=== PATIENT | male | born 1955 | race Hispanic/Latino ===

== ENCOUNTER → 2018-03-25 | Outpatient (CLI) | payer OTHER ==
[~2018-03-25] MED LIST: GLIPIZIDE ER5 MG PO; METFORMIN HCL500 M1 PO
--- NOTE | 2018-03-26 15:32 | Diagnostic Imaging Report ---
EXAM: MRI of the abdomen without contrast with MRCP INDICATION: Obstructive jaundice. Weight loss. COMPARISON: None available. TECHNIQUE: Multiplanar, multisequence MRCP was performed, with sequences including coronal turbo spin-echo T1-weighted scans, [facility] MRCP scans, coronal spin, coronal MPR 2[facility], [facility] MRCP PERALTA. Discussion: Image degradation by breathing motion artifact. LOWER THORAX: Unremarkable. HEPATOBILIARY: No focal hepatic lesions. The common bile duct is diffusely dilated up to 1.4 cm in AP dimension on image 25 series 6, with abrupt cut off and low signal filling defect just proximal to the ampulla as seen on coronal image 19 series 8. Proximal mild diffuse central intrahepatic biliary dilatation. GALLBLADDER: No radio-opaque stones or sludge. No wall thickening. SPLEEN: No splenomegaly. PANCREAS: The main pancreatic duct is mildly prominent measuring 3 to 4 mm in diameter. ADRENALS: No adrenal nodules KIDNEYS/URETERS: Mild prominence of the right upper upper pole collecting system with a possible cyst small cyst in the lateral interpolar region of the right kidney on image 36 series 5. No stones. GI TRACT: No abnormal distention, wall thickening, or evidence of bowel obstruction. Appendix is normal. LYMPH NODES: No lymphadenopathy. VESSELS: Unremarkable. PERITONEUM / RETROPERITONEUM: No free air or fluid. BONES: No suspicious lesions. SOFT TISSUES: Unremarkable. IMPRESSION: Mild central intrahepatic biliary dilatation, and moderate diffuse dilatation of the common bile duct with abrupt cut off distally just proximal to the ampulla, with low-attenuation filling defect not well evaluated due to the lack of contrast. Given the lack of evidence of cholelithiasis on this exam, findings could be related to an ampullary lesion, distal CBD lesion, or less likely pancreatic head lesion given mild prominence of the main pancreatic duct. Recommend further evaluation with CT or MRI of abdomen without and with contrast pancreatic mass protocol. Otherwise, consider ERCP. Signed by: Dr. Chris Dockery M.D. on 03/26/2018 3:29 PM
== END ==
LOC: MRI 12:15
PROVIDERS: ATTEND Internal Medicine Gastroenterology
DX: K83.1 Obstruction of bile duct (principal)
CPT/HCPCS: 74181

== ENCOUNTER 2018-03-27 08:24 | Inpatient (IN) | payer OTHER ==
[2018-03-25 15:46] LABS: BASOPHILS % 0.3 % (0.0-1.0); EOSINOPHILS # (AUTO) 0.1 (0.0-0.4); HEMOGLOBIN 10.4 g/dL (14.0-18.0); LYMPHOCYTES # (AUTO) 1.3 (1.0-3.2); MEAN CORPUSCULAR HEMOGLOBIN 31.2 pg (28-32); MEAN CORPUSCULAR HGB CONC 32.5 g/dL (31-35); MEAN CORPUSCULAR VOLUME 96.1 fL (81-99); MONOCYTES # (AUTO) 0.8 (0.2-0.8); MONOCYTES % 6.9 % (4.4-11.3); NEUTROPHILS # (AUTO) 9.4 (2.1-6.9); NEUTROPHILS % 80.5 % (38.7-80.0); PLATELET COUNT 414 x10e3/uL (140-360); RED BLOOD COUNT 3.33 x10e6/uL (4.3-5.7)
[2018-03-25 16:00] LABS: INR 1.06; PROTHROMBIN TIME 14.8 seconds (11.9-14.5)
[2018-03-25 16:01] LABS: PARTIAL THROMBOPLASTIN TIME 37.6 seconds (23.8-35.5)
[2018-03-25 16:09] LABS: ALANINE AMINOTRANSFERASE 159 IU/L (0-55); ALBUMIN 2.1 g/dL (3.5-5.0); ALBUMIN/GLOBULIN RATIO 0.5 (0.8-2.0); ALKALINE PHOSPHATASE 1444 IU/L (40-150); ANION GAP 14.5 mmol/L (8-16); BLOOD UREA NITROGEN 10 mg/dL (7-26); BUN/CREATININE RATIO 15 (6-25); CALCIUM 9.2 mg/dL (8.4-10.2); CARBON DIOXIDE 21 mmol/L (22-29); CHLORIDE 102 mmol/L (98-107); CREATININE, SERUM 0.65 mg/dL (0.72-1.25); EST GLOMERULAR FILTRATION RATE > 60 ML/MIN (60-); GLUCOSE 60 mg/dL (74-118); POTASSIUM 3.5 mmol/L (3.5-5.1); SODIUM 134 mmol/L (136-145)
[~2018-03-27] VITALS: Ht 167.6 cm; Wt 72.2 kg
--- OUTSIDE RECORDS SUMMARY | 2018-03-27 08:26 | XMS REPORT ---
Author Author [facility] Address Unknown Phone Unavailable Care Team Providers Care Sheep Sticker Name Role Phone SEJAL JIM Unavailable Unavailable Problems This patient has no known problems. Allergies, Adverse Reactions, Alerts This patient has no known allergies or adverse reactions. Medications This patient has no known medications. Results Test Description Test Time Test Comments Text Results Atomic Results Result Comments MRI MRCP WO 2018-03-26 15:14:00 [place] [address] Patient Name: MICHAEL THOMPSON MR #: [id number] : 1955 Age/Sex: 63/M Req #: [id number] Adm Physician: Ordered by: SEJAL JIM MD Report #: [id number] Location: MRI Room/Bed: Procedure: [id number] MRI/MRI MRCP WO Exam Date: 03/25/18 Exam Time: 1603 REPORT STATUS: Signed EXAM: MRI of the abdomen without contrast with MRCP INDICATION: Obstructive jaundice. Weight loss. COMPARISON: None available. TECHNIQUE: Multiplanar, multisequence MRCP was performed, with sequences including coronal turbo spin-echo T1-weighted scans, [facility] MRCP scans, coronal spin, coronal MPR 2, [facility] 3D HR, [facility] MRCP PERALTA. Discussion: Image degradation by breathing motion artifact. LOWER THORAX: Unremarkable. HEPATOBILIARY: No focal hepatic lesions. The common bile duct is diffusely dilated up to 1.4 cm in AP dimension on image 25 series 6, with abrupt cut off and low signal filling defect just proximal to the ampulla as seen on coronal image 19 series 8. Proximal mild diffuse central intrahepatic biliary dilatation. GALLBLADDER: No radio-opaque stones or sludge. No wall thickening. SPLEEN: No splenomegaly. PANCREAS: The main pancreatic duct is mildly prominent measuring 3 to 4 mm in diameter. ADRENALS: No adrenal nodules KIDNEYS/URETERS: Mild prominence of the right upper upper pole collecting system with a possible cyst small cyst in the lateral interpolar region of the right kidney on image 36 series 5. No stones. GI TRACT: No abnormal distention, wall thickening, or evidence of bowel obstruction. Appendix is normal. LYMPH NODES: No lymphadenopathy. VESSELS: Unremarkable. PERITONEUM / RETROPERITONEUM: No free air or fluid. BONES: No suspicious lesions. SOFT TISSUES: Unremarkable. IMPRESSION: Mild central intrahepatic biliary dilatation, and moderate diffuse dilatation of the common bile duct with abrupt cut off distally just proximal to the ampulla, with low-attenuation filling defect not well evaluated due to the lack of contrast. Given the lack of evidence of cholelithiasis on this exam, findings could be related to an ampullary lesion, distal CBD lesion, or less likely pancreatic head lesion given mild prominence of the main pancreatic duct. Recommend further evaluation with CT or MRI of abdomen without and with contrast pancreatic mass protocol. Otherwise, consider ERCP. Signed by: Dr. Chris Johnson M.D. on 03/26/2018 3:29 PM Dictated By: RADHA JOHNSON MD, MD [id number] Transcribed By: CASIMIRO on 03/26/18 1529 COPY TO: SEJAL JIM MD
[2018-03-27] MEDS ORDERED: DEXTROSE 5% 250ML 250 ML IV ONE (09:00)
[2018-03-27] MEDS ORDERED: DEXTROSE 50% SYRINGE 50 ML IV ONE (11:57)
[2018-03-27] MEDS ORDERED: IOPAMIDOL 610MG/1ML 300 MG/ML VIAL IV ONE (12:39)
[2018-03-27] MEDS ORDERED: INDOMETHACIN 50 MG SUPP.RECT RC ONE (12:40)
--- NOTE | 2018-03-27 14:26 | NUR ---
RCD PT FROM PACU BY STRETCHER PT IS ALERT AND ORIENTED VITALS CHECKED PT RESTING ON BED NO SIGNS OF ANY DISTRESS NOTED ADMISSION ASSESSMENT AND HISTORY DONE FAMILY AT BED SIDE INSTRUCTED PT AND FAMILY REGARDING HOSPITAL POLICY AND ROUTINE BED LOW AND LOCKED CALL LIGHT IN REACH
[2018-03-27] MEDS ORDERED: MIDAZOLAM HCL 2 MG/2 ML VIAL ONE (15:18)
[2018-03-27] MEDS ORDERED: FENTANYL CITRATE/PF 100MCG/2 ML INJ ONE (15:18)
[2018-03-27 15:33] LABS: INR 1.1; PROTHROMBIN TIME 15.2 seconds (11.9-14.5)
[2018-03-27 15:34] LABS: PARTIAL THROMBOPLASTIN TIME 36.3 seconds (23.8-35.5)
--- NOTE | 2018-03-27 15:46 | Operative Report ---
DATE OF PROCEDURE: March 27, 2018 REFERRING PHYSICIAN: Dr. Gurdeep Serrano. PROCEDURES PERFORMED 1. Endoscopic retrograde cholangiopancreatography. 2. Esophagogastroduodenoscopy with biopsies. MEDICATION: Patient was done under general endotracheal anesthesia. Please see anesthesiologist's note. PROCEDURE: After induction of adequate general endotracheal anesthesia with the patient in the prone position, the flexible fiberoptic side-viewing Olympus scope was introduced into the esophagus and advanced all the way to the second portion of the duodenum. A large tumor was noted in the periampullary area, and the scope could not be advanced beyond that area. No discernible ampullary orifice was noted to attempt to cannulate. The scope was then withdrawn, and an EGD scope was inserted and multiple biopsies were obtained and sent for frozen section. There was one single area that was thought potentially represented the ampullary orifice, and attempt to cannulate it with a forward-viewing scope was unsuccessful. The scope was subsequently withdrawn. Patient tolerated the procedure well. IMPRESSION 1. Large periampullary mass. Frozen section positive for adenocarcinoma. 2. No ampullary orifice could be delineated for cannulation. INCOMPLETE REPORT - CANCELLED Job#: [id number] EV
--- NOTE | 2018-03-27 15:47 | Operative Report ---
DATE OF PROCEDURE: March 27, 2018 REFERRING PHYSICIAN: Gurdeep Fajardo MD PROCEDURES PERFORMED 1. Endoscopic retrograde cholangiopancreatography. 2. Esophagogastroduodenoscopy with biopsies. INDICATIONS FOR PROCEDURE: Obstructive jaundice, abnormal MRCP. MEDICATION: Patient was done under general endotracheal anesthesia. Please see anesthesiologist's note. DESCRIPTION OF PROCEDURE: After adequate induction of general endotracheal anesthesia with the patient in a prone position, the flexible fiberoptic Olympus side-viewing scope was introduced into the esophagus and advanced all the way to the 2nd portion of the duodenum. There was a large periampullary tumor noted and no ampullary orifice was delineated to attempt to cannulate. The scope could not be advanced beyond the tumor. The scope was subsequently withdrawn, and an EGD scope was introduced into the esophagus and advanced all the way to the 2nd portion of the duodenum. Biopsies were obtained from the mass, and those were positive for adenocarcinoma. An attempt then was made to cannulate a spot which appeared to be possibly the ampullary orifice, but the cannulation was unsuccessful. The scope was subsequently withdrawn. Patient tolerated the procedure well. IMPRESSION 1. Large periampullary tumor. Biopsies were positive for adenocarcinoma. 2. No definite ampullary orifice was delineated to cannulate. 3. An attempt to cannulate with the forward-viewing scope what appeared to be possibly the ampullary orifice was unsuccessful. PLAN: Will refer to interventional radiology for external drainage. Job#: [id number] MH cc:GURDEEP FAJARDO MD
[2018-03-27] MEDS ORDERED: PROPOFOL IV EMULSION 10 MG/ML 20 ML VIAL ONE (16:05)
[2018-03-27] MEDS ORDERED: ONDANSETRON HCL INJ 2MG/ML 2ML 2 MG/ML VIAL ONE (16:05)
[2018-03-27] MEDS ORDERED: DEXAMETHASONE SOD PHOS INJ 4 MG/ML VIAL ONE (16:05)
[2018-03-27] MEDS ORDERED: LIDOCAINE HCL 2% LOCAL INJ 5 ML SDV VIAL INJ ONE (16:05)
[2018-03-27] MEDS ORDERED: SEVOFLURANE INHAL SOLN 250 ML PEN BTL ONE (16:05)
--- NOTE | 2018-03-27 17:00 | NUR ---
PT GOING FOR PROCEDURE ON TOMORROW CONSENT SIGNED NPO AFTER MIDNIGHT
[2018-03-27 17:36] VITALS: BP 113/76
[2018-03-27 17:45] VITALS: BP 99/58
--- NOTE | 2018-03-27 19:13 | NUR ---
REPORT GIVEN TO ONCOMING NURSE,WALKING ROUNDS MADE.PT RESTING IN BED WITH NO S/S OF DISTRESS.
[2018-03-27 20:00] VITALS: BP 119/70
[2018-03-27 22:00] VITALS: BP 119/70
[2018-03-28] VITALS (7 sets, daily range): BP systolic 107–118; BP diastolic 65–71
--- NOTE | 2018-03-28 07:20 | NUR ---
REPORT GIVEN TO ONCOMING NURSE,WALKING ROUNDS MADE.PT RESTING IN BED WITH NO S/S OF DISTRESS.
--- NOTE | 2018-03-28 07:45 | NUR ---
Dr. Huffman visited and spoke with the pt. and his son concerning his recent diagnosis and treatment plan. The pt is N P O for ct scan and IR procedure.
--- NOTE | 2018-03-28 08:58 | NUR ---
The pt was escorted to CT via w/c in stable condition for the Ct scan.
--- NOTE | 2018-03-28 09:23 | NUR ---
920am called to CT scan room. Rt Ac IV #20 placed for procedure w/o incident ,flushed with ns with adequate blood return, no swelling or infiltration.Site secured and dressed. Handoff to CT staff Ratna freight air brake fitter, isaac to proceed with line for CT testing. Nacny ARANA (radiology nurse)
--- NOTE | 2018-03-28 09:30 | NUR ---
The pt. was returned to the room from the scan and maintained N P O for IR.
--- NOTE | 2018-03-28 10:31 | Diagnostic Imaging Report ---
EXAMINATION: CT of the abdomen and pelvis with contrast. TECHNIQUE: Helical CT images of the abdomen and pelvis were performed from the lung bases to the lesser trochanters after the intravenous administration of 150 cc of Isovue 300 and the oral administration of none. Coronal and sagittal reformatted images were obtained.Dose modulation, iterative reconstruction, and/or weight based adjustment of the mA/kV was utilized to reduce the radiation dose to as low as reasonably achievable. COMPARISON: MRCP March 25, 2017 CLINICAL HISTORY:Jaundice, cancer DISCUSSION: ABDOMEN/PELVIS: LOWER THORAX:Unremarkable. HEPATOBILIARY: No focal hepatic lesions. Intrahepatic biliary dilatation. The common bile duct is dilated measuring up to 1.3 cm with abrupt narrowing at the ampulla of vater. Soft tissue density in this region. Mild gallbladder wall thickening. No calculi. SPLEEN: No splenomegaly. PANCREAS: Pancreatic duct is prominent measuring 4 mm proximally. No visualized pancreatic head mass. ADRENALS: No adrenal nodules. KIDNEYS/URETERS: 1.3 cm simple cyst in the right kidney. No enhancing lesions. No calculi. No obstruction. PELVIC ORGANS/BLADDER: The bladder is normal. PERITONEUM/RETROPERITONEUM: No free air or fluid. LYMPH NODES: No intra-abdominal, retroperitoneal, pelvic or inguinal lymphadenopathy. VESSELS: Unremarkable. GI TRACT: No distention or wall thickening. BONES AND SOFT TISSUE: No bony destructive lesions. No soft tissue abnormalities. IMPRESSION: Ampullary carcinoma with biliary dilatation. No significant pancreatic invasion, adenopathy, or metastasis. Signed by: Dr. Abdirashid Spence M.D. on 03/28/2018 10:28 AM
[2018-03-28] MEDS ORDERED: IOPAMIDOL 370 MG/ML 200 ML INFUS..BTL INJ ONE (14:36)
[2018-03-28] MEDS ORDERED: SODIUM CHLORIDE 0.9% 50ML 50 ML ONE (14:36)
[2018-03-28] MEDS: DEXTROSE 5%/0.45% SOD CHL 1,000 ML IV SCH (14:45)
--- NOTE | 2018-03-28 14:45 | NUR ---
I spoke with Dr. Moreno about med rec and he does not want med restarted at this time. Iv fluids ordered and is hanging.
--- NOTE | 2018-03-28 15:49 | NUR ---
Doppler pulses positive bilaterally in feet. The pt. will be allowed head elevation as there is no edema or bleeding noted.
--- NOTE | 2018-03-28 16:42 | NUR ---
Nutrition Intervention Note RD Recommendation(s) for Physician: -Rec GI soft diet as medically feasible -Consider Glucerna BID to promote protein-calorie intake when PO is feasible The patient meets criteria for MODERATE protein-calorie malnutrition. Plan of Care: RD following, monitoring for tolerance and adequacy, ONS rec Nutrition reason for involvement: Nutrition Risk Trigger MST RD Assessment 03/28- Chart reviewed. 63yo M, who is admitted for ampullary cancer/ obstruction and jaundice. S/p ERCP and EGD with biopsy on 03/27. Visited pt in the room. Pt only speaks Portuguese; daughter presented on bedside to translate. Pt reported constant nausea after eating and 20lbs weight loss since he started on 2 new medications in December 2017. Reported UBW ~190lbs. During my interview, pt reported having appetite and eager to eat; NPO at this time. No nausea, vomiting or abdominal pain at this time. 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 Will continue to monitor and follow. Principal Problems/Diagnoses: ampullary cancer, jaundice PMH: DM GI: LBM prior to surgery Skin: intact Labs: reviewed Meds: dextrose Ht: 66in Wt: 170.38lb BMI: 27.5kg/m2 IBW: 142 Malnutrition Evaluation (03/28/2018) The patient meets criteria for MODERATE protein-calorie malnutrition. Energy intake: <75% of estimated energy requirements for >3 months Weight loss: >7.5% in 3 months (Acute) Fat loss: None Muscle loss: None Supporting Evidence: Fluid accumulation: N/A Functional Status: no changes Nutrition Prescription (Diet Order): NPO Estimated Nutritional Needs: Calories: 1925 2310kcal(25-30kcal/kg/d) Weight used: current BW Protein: 100 154g (1.3-2g/kg/d) Weight used: current BW Diet Adequacy: Not meeting calorie needs, Not meeting protein needs Diet Education Needs Assessment: Diet education not indicated Nutrition Care Level: mod Nutrition Diagnosis: Unintended weight loss related to acute illness as evidenced by poor PO intake and 20lbs weight loss in 3 months. Goal: Patient will meet 75-100% of estimated needs by follow up Progress: N/A Interventions: Texture-modified diet, Commercial beverage Monitoring/Evaluation: Total energy intake, Total protein intake, Modified diet, Liquid supplement, Weight change Signed: Georgia Head, , RD, LD
--- NOTE | 2018-03-28 19:19 | NUR ---
Report to the oncoming nurse
--- NOTE | 2018-03-28 21:29 | NUR ---
blood sugar rechecked and improving 76 mg/dl. Patient is alert and asymptomatic.
--- NOTE | 2018-03-28 23:40 | NUR ---
Seen by Dr. Abilio Melton, made aware of Blood sugar. New orders received. Patient ate some pudding and applesauce with orange juice.
[2018-03-29] VITALS (8 sets, daily range): BP systolic 114–129; BP diastolic 65–74
[2018-03-29] MEDS: DEXTROSE 5%/0.45% SOD CHL 1,000 ML IV SCH (03:15)
[2018-03-29 05:33] LABS: ALANINE AMINOTRANSFERASE 148 IU/L (0-55); ALBUMIN 1.8 g/dL (3.5-5.0); ALBUMIN/GLOBULIN RATIO 0.4 (0.8-2.0); ALKALINE PHOSPHATASE 1461 IU/L (40-150); ANION GAP 13.7 mmol/L (8-16); BLOOD UREA NITROGEN 14 mg/dL (7-26); BUN/CREATININE RATIO 22 (6-25); CALCIUM 8.8 mg/dL (8.4-10.2); CARBON DIOXIDE 23 mmol/L (22-29); CHLORIDE 99 mmol/L (98-107); CREATININE, SERUM 0.64 mg/dL (0.72-1.25); EST GLOMERULAR FILTRATION RATE > 60 ML/MIN (60-); GLUCOSE 103 mg/dL (74-118); POTASSIUM 3.7 mmol/L (3.5-5.1); SODIUM 132 mmol/L (136-145)
[2018-03-29 06:07] LABS: FERRITIN 821.99 ng/mL (21.81-274.66)
--- NOTE | 2018-03-29 06:13 | NUR ---
Dr Kaufman notified of this consult.
[2018-03-29 06:29] LABS: FOLATE 14.3 ng/mL (7.0-15.4)
--- NOTE | 2018-03-29 07:00 | NUR ---
The pt. was received from the off-gong nurse post rounding. The side rails are up and bed alarms functional.
--- NOTE | 2018-03-29 11:16 | NUR ---
The pt's blood glucose is elevated to 425 up from 132 this morning. No insulin coverage ordered and home meds were addressed with the on 03/28 and he does not want pt. on med pass at that time. A stat lab draw was ordered and a call to the for orders. Dr. Madison returned call and orders received and carried out.
[2018-03-29] MEDS ORDERED: DEXTROSE 50% SYRINGE 50 ML IV PRN ×4 (11:45→17:30)
[2018-03-29] MEDS ORDERED: PHYTONADIONE 10 MG/ML AMP IM ONE (13:30)
--- NOTE | 2018-03-29 13:58 | Consultation ---
DATE OF CONSULTATION: March 29, 2018 REASON FOR CONSULTATION: Ampullary cancer. HISTORY OF PRESENT ILLNESS: The patient is a 63-year-old male who has been complaining of painless jaundice associated with a 30-pound weight loss for 2 months. This has been associated with decreased appetite. No fever. No chills. The patient had a workup with CT scan, MRCP, and ERCP revealing an ampullary carcinoma. During the ERCP, the ampulla could not be cannulated, but biopsy was taken and the pathology report according to the ERCP report shows adenocarcinoma. The remaining workup does not show any evidence of metastatic disease. The patient's liver chemistries are grossly abnormal with a bilirubin of 12.7, alkaline phosphatase is 1461, AST 175, ALT 148. Protein is 5.9 with an albumin of 1.8. Admission electrolytes were normal. Blood sugar is 284. Admission CBC reveals a WBC of 11.65 with normal platelet count, hematocrit of 32. The admission PT is 15.5, INR of 1.1, and PTT of 36. Chest x-ray, there is no report on the chart if one has been done. PAST MEDICAL HISTORY: Significant for diabetes, hypertension, high cholesterol. PAST SURGICAL HISTORY: No previous major medical surgeries. SOCIAL HISTORY: He used to smoke. He does not drink. FAMILY HISTORY: Noncontributory. ALLERGIES: THE PATIENT HAS NO KNOWN ALLERGIES. CURRENT MEDICATIONS: Glipizide, metformin, lisinopril, pravastatin, Invokana, and Kombiglyze. REVIEW OF SYSTEMS: Significant for what has been stated. PHYSICAL EXAMINATION GENERAL: Reveals a 63-year-old male in no acute distress. He is clinically jaundiced. HEAD, EYES, EARS, NOSE AND THROAT: Examination reveals no acute process. LUNGS: Clear. HEART: Regular sinus rhythm. ABDOMEN: Soft and nontender. There are no palpable masses. EXTREMITIES: Reveal no clubbing, cyanosis, or edema. NEUROLOGIC: Examination is nonfocal. ASSESSMENT 1. 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 2. At this point, there is no evidence of metastatic disease. 3. Diabetes. 4. Hypertension. PLAN: At this point, it appears that the patient might be a surgical candidate for a Whipple procedure since there is no obvious metastatic disease. Of concern is the fact that he has significant weight loss and is grossly clinically jaundiced even though there is no evidence of adenopathy or hepatic metastasis, this is always a concern. We will discuss further management with the other consultants. Thank you very much for the courtesy of this consultation. Job#: [id number] LILI
--- NOTE | 2018-03-29 14:37 | Diagnostic Imaging Report ---
EXAMINATION: CHEST 2 VIEWS INDICATION: Jaundice, hematuria ^no recent exam COMPARISON: CT abdomen/pelvis 03/28/2018 FINDINGS: PA and lateral views TUBES and LINES: None. LUNGS: Lungs are well inflated. There is no evidence of pneumonia or pulmonary edema. PLEURA: No pleural effusion or pneumothorax. HEART AND MEDIASTINUM: The cardiomediastinal silhouette is unremarkable.. BONES AND SOFT TISSUES: Endplate degenerative changes of the spine. No focal osseous lesions. Soft tissues are unremarkable. UPPER ABDOMEN: No free air under the diaphragm. IMPRESSION: No acute thoracic abnormality. Signed by: Dr. Lisa Bueno MD on 03/29/2018 2:34 PM
[2018-03-29] MEDS: METFORMIN HCL 500 MG TAB CR PO SCH (18:10)
--- NOTE | 2018-03-29 19:08 | NUR ---
Report to oncoming nurse.
[2018-03-29] MEDS: INSULIN LISPRO 100 UNIT/1 ML 3ML VIAL SQ SCH (20:52)
[2018-03-29] MEDS ORDERED: INSULIN LISPRO 100 UNIT/1 ML 3ML VIAL SQ SCH (21:00)
[2018-03-29] MEDS ORDERED: INSULIN REGULAR, HUMAN 100 UNIT/1 ML 3ML VIAL SQ SCH (21:00)
[2018-03-30] VITALS (8 sets, daily range): BP systolic 108–126; BP diastolic 64–74
[2018-03-30 04:54] LABS: BASOPHILS % 0.3 % (0.0-1.0); EOSINOPHILS # (AUTO) 0.2 (0.0-0.4); EOSINOPHILS % 1.7 % (0.0-6.0); HEMATOCRIT 29.5 % (38.2-49.6); HEMOGLOBIN 10.3 g/dL (14.0-18.0); LYMPHOCYTES # (AUTO) 1.3 (1.0-3.2); LYMPHOCYTES % 12.4 % (18.0-39.1); MEAN CORPUSCULAR HEMOGLOBIN 32.6 pg (28-32); MEAN CORPUSCULAR HGB CONC 34.9 g/dL (31-35); MEAN CORPUSCULAR VOLUME 93.4 fL (81-99); MONOCYTES # (AUTO) 0.8 (0.2-0.8); MONOCYTES % 7.8 % (4.4-11.3); NEUTROPHILS # (AUTO) 8.2 (2.1-6.9); NEUTROPHILS % 77.4 % (38.7-80.0); PLATELET COUNT 369 x10e3/uL (140-360); RED BLOOD COUNT 3.16 x10e6/uL (4.3-5.7); RED CELL DISTRIBUTION WIDTH 13.7 % (11.7-14.4)
[2018-03-30 05:13] LABS: ALANINE AMINOTRANSFERASE 138 IU/L (0-55); ALBUMIN 1.8 g/dL (3.5-5.0); ALBUMIN/GLOBULIN RATIO 0.4 (0.8-2.0); ALKALINE PHOSPHATASE 1440 IU/L (40-150); ANION GAP 15.9 mmol/L (8-16); BLOOD UREA NITROGEN 12 mg/dL (7-26); BUN/CREATININE RATIO 18 (6-25); CALCIUM 8.8 mg/dL (8.4-10.2); CARBON DIOXIDE 23 mmol/L (22-29); CHLORIDE 99 mmol/L (98-107); CREATININE, SERUM 0.68 mg/dL (0.72-1.25); EST GLOMERULAR FILTRATION RATE > 60 ML/MIN (60-); GLUCOSE 212 mg/dL (74-118); POTASSIUM 3.9 mmol/L (3.5-5.1); SODIUM 134 mmol/L (136-145)
--- NOTE | 2018-03-30 07:00 | NUR ---
RCD PT AT BED PT IS ALERT AND ORIENTED ASSESSMENT DONE PT RESTING ON BED NO SIGNS OF ANY DISTRESS NOTED IV PATENT BED LOW AND LOCKED CALL LIGHT IN REACH
[2018-03-30] MEDS: INSULIN LISPRO 100 UNIT/1 ML 3ML VIAL SQ SCH ×4 (07:30→20:47)
[2018-03-30] MEDS: METFORMIN HCL 500 MG TAB CR PO SCH ×2 (08:00→16:23)
[2018-03-30] MEDS: IRON SUCROSE 100 MG in SODIUM CHLORIDE 0.9% 100 ML 100 ML IV SCH (09:00)
[2018-03-30] MEDS: GLIPIZIDE 5 MG TAB ER PO SCH (09:00)
[2018-03-30] MEDS ORDERED: PHYTONADIONE 10 MG/ML AMP IM ONE ×2 (09:00→10:00)
--- NOTE | 2018-03-30 15:25 | NUR ---
Visit made by the Spiritual Care Department Pastoral Visitor, Sandra Gutierrez. PV provided pastoral presence, hospitality, communion, and supportive listening. Pastoral Visitor informed pt/family of the scope of [employer] and availability. RICHY ZAPIEN Dispatcher Tow Truck Spiritual Care Department O: [phone] Pager: [phone] ([phone] number calling from)
--- NOTE | 2018-03-30 18:39 | NUR ---
PT RESTING ON BED BED SIDE REPORT GIVEN TO ONCOMING NURSE
[2018-03-31] VITALS (9 sets, daily range): BP systolic 113–130; BP diastolic 65–73
[2018-03-31 04:43] LABS: BASOPHILS # (AUTO) 0.1 (0.0-0.1); BASOPHILS % 0.5 % (0.0-1.0); EOSINOPHILS # (AUTO) 0.2 (0.0-0.4); HEMATOCRIT 30.2 % (38.2-49.6); HEMOGLOBIN 9.9 g/dL (14.0-18.0); LYMPHOCYTES # (AUTO) 1.5 (1.0-3.2); LYMPHOCYTES % 14.2 % (18.0-39.1); MEAN CORPUSCULAR HEMOGLOBIN 31.3 pg (28-32); MEAN CORPUSCULAR HGB CONC 32.8 g/dL (31-35); MEAN CORPUSCULAR VOLUME 95.6 fL (81-99); MONOCYTES # (AUTO) 0.9 (0.2-0.8); MONOCYTES % 8.3 % (4.4-11.3); NEUTROPHILS % 74.6 % (38.7-80.0); PLATELET COUNT 415 x10e3/uL (140-360); RED BLOOD COUNT 3.16 x10e6/uL (4.3-5.7); RED CELL DISTRIBUTION WIDTH 13.7 % (11.7-14.4)
[2018-03-31 05:09] LABS: ALANINE AMINOTRANSFERASE 133 IU/L (0-55); ALBUMIN 1.7 g/dL (3.5-5.0); ALBUMIN/GLOBULIN RATIO 0.4 (0.8-2.0); ALKALINE PHOSPHATASE 1460 IU/L (40-150); ANION GAP 13.7 mmol/L (8-16); BLOOD UREA NITROGEN 13 mg/dL (7-26); BUN/CREATININE RATIO 19 (6-25); CALCIUM 8.7 mg/dL (8.4-10.2); CARBON DIOXIDE 23 mmol/L (22-29); CHLORIDE 99 mmol/L (98-107); CREATININE, SERUM 0.68 mg/dL (0.72-1.25); EST GLOMERULAR FILTRATION RATE > 60 ML/MIN (60-); GLUCOSE 221 mg/dL (74-118); POTASSIUM 3.7 mmol/L (3.5-5.1); SODIUM 132 mmol/L (136-145)
[2018-03-31] MEDS: INSULIN LISPRO 100 UNIT/1 ML 3ML VIAL SQ SCH ×4 (07:30→20:30)
[2018-03-31] MEDS: METFORMIN HCL 500 MG TAB CR PO SCH ×2 (08:00→16:52)
[2018-03-31] MEDS: IRON SUCROSE 100 MG in SODIUM CHLORIDE 0.9% 100 ML 100 ML IV SCH (09:00)
[2018-03-31] MEDS: GLIPIZIDE 5 MG TAB ER PO SCH (09:00)
--- NOTE | 2018-03-31 14:53 | NUR ---
Spoke with Dr. Alina Kaufman. He [facility] He has spoke to Dr. Raphael Figueroa who will accept pt. Spoke to pt at bedside and he is agreeable to transferring. Choice letter signed and placed in chart. Copy to pt. CM called and spoke to Milana at the transfer center to initiate transfer. Faxed facesheet and H&P to transfer center. [facility] [address] [place] [id number] P [phone] F [phone] MOT initiated and placed in nurse's station. Per Dr. Maren Kaufman, pt needs to transfer with CT Scan, endoscopy imaging, and Dr. Ashley Melton's op report.
--- NOTE | 2018-03-31 15:58 | NUR ---
PUJA RN CALL FROM [facility] TO GET THE REPORT
--- NOTE | 2018-03-31 16:52 | NUR ---
Received call from Milana at the Transfer Center. She stated they currently do not have a bed. CM will follow up tomorrow morning.
--- NOTE | 2018-03-31 18:44 | NUR ---
PT RESTING ON BED BED SIDE REPORT GIVEN TO ONCOMING NURSE
--- NOTE | 2018-03-31 23:31 | NUR ---
PAGEDriss AND SPOKE TO DR Jazlyn JIM,NEW ORDER RECEIVED TO DISCHARGE PT.
--- NOTE | 2018-03-31 23:33 | NUR ---
SPOKE TO DR Ashley JIM,DR Ashley JIM UPDATED REGARDING PT TRANSFER TO [facility].
--- NOTE | 2018-03-31 23:45 | NUR ---
CALLED REPORT TO SOLITARIO ARANA FOR PT TRANSFERRING TO ROOM 1543 AT [facility].
[2018-04-01] VITALS: BP 120/71
--- NOTE | 2018-04-01 00:30 | NUR ---
PT TRANSFERRED TO [facility] VIA STRETCHER ACCOMPANIED BY 2 EMT IN STABLE CONDITION.PT'S SON PRESENT AT THE TIME OF TRANSFER.
== END 2018-04-01 00:30 | disposition short-term general hospital (02) | DRG 435 ==
LOC: ENDO 08:24 → PACU V 14:22 → MED/SURG2 15:05
PROC: BF101ZZ Fluoroscopy of Bile Ducts using Low Osmolar Contrast (ICD-10-PCS; 2018-03-27)
PROC: 0DB98ZX Excision of Duodenum, Via Natural or Artificial Opening Endoscopic, Diagnostic (ICD-10-PCS; 2018-03-27)
PROC: 0FBC8ZX Excision of Ampulla of Vater, Via Natural or Artificial Opening Endoscopic, Diagnostic (ICD-10-PCS; 2018-03-27)
PROC: 0FJB8ZZ Inspection of Hepatobiliary Duct, Via Natural or Artificial Opening Endoscopic (ICD-10-PCS; principal; 2018-03-27 12:55)
DX: C24.1 Malignant neoplasm of ampulla of Vater (principal); K83.1 Obstruction of bile duct; E11.9 Type 2 diabetes mellitus without complications; I10 Essential (primary) hypertension; Z79.4 Long term (current) use of insulin; D64.9 Anemia, unspecified; D63.8 Anemia in other chronic diseases classified elsewhere
CPT/HCPCS: 36415; 43261; 71046; 74177; 76000; 80053; 82607; 82728; 82746; 82947; 82948; 83540; 84466; 85025; 85045; 85610; 85730; 86301; 88305; 88331; 88342; 93005; J1100; J1756; J2001; J2250; J2405; J3430; J7070; J7799; Q9967